=== PATIENT | male | born 1995 | race Caucasian/White ===

== ENCOUNTER 2016-08-18 09:33 | Emergency (ER) | payer OTHER ==
[~2016-08-18] VITALS: Ht 182.9 cm; Wt 90.5 kg
[~2016-08-18 09:33] MED LIST: ACET325T33 PO
[2016-08-18 09:36] VITALS: Ht 182.9 cm; Wt 90.5 kg
[2016-08-18] MEDS ORDERED: IBUPROFEN 800 MG TAB PO ONE (10:00)
[2016-08-18] MEDS ORDERED: LIDOCAINE 2%/EPI MPF (SDV) 20 ML VIAL INJ ONE (10:00)
[2016-08-18] MEDS ORDERED: CYCLOBENZAPRINE 10 MG TAB PO ONE (10:00)
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
[2016-08-18] MEDS ORDERED: IBUP800T25 PO (10:59)
[2016-08-18] MEDS ORDERED: CYCL-319 PO (10:59)
[2016-08-18] MEDS ORDERED: DIPHTH/TET/ACEL PERTUSS (ADULT) 0.5 ML VIAL IM* ONE (11:00)
== END 2016-08-18 11:17 | disposition home or self-care (01) ==
LOC: FTE 09:33
DX: S01.81XA Laceration without foreign body of other part of head, initial encounter (principal); F17.210 Nicotine dependence, cigarettes, uncomplicated; R06.02 Shortness of breath; R40.2412 Glasgow coma scale score 13-15, at arrival to emergency department; S69.91XA Unspecified injury of right wrist, hand and finger(s), initial encounter; V13.4XXA Pedal cycle driver injured in collision with car, pick-up truck or van in traffic accident, initial encounter; Z23 Encounter for immunization
CPT/HCPCS: 12011; 70486; 71010; 73110; 90715; Z7610; 90471

== ENCOUNTER 2016-08-25 16:27 | Emergency (ER) | END 2016-08-25 19:20 | disposition left against medical advice (07) | DX: Z48.02 Encounter for removal of sutures (principal); F17.210 Nicotine dependence, cigarettes, uncomplicated ==

== ENCOUNTER 2017-09-13 10:35 | Emergency (ER) | END 2017-09-13 14:14 | disposition home or self-care (01) ==